=== PATIENT | female | born 1975 | race Hispanic/Latino ===

== ENCOUNTER 2019-10-31 17:27 | Emergency (ER) | payer SELFPAY ==
[~2019-10-31] VITALS: Ht 162.6 cm; Wt 79.4 kg
[2019-10-31] MEDS ORDERED: DICLOFENAC SODI75 MG PO (20:21)
--- NOTE | 2019-11-01 19:59 | EKG ---
[facility] [address] [facility] [place] [address] Signed Normal sinus rhythm Normal ECG No previous ECGs available Confirmed by LEVI EDWARDS MD ([id number]) on 11/01/2019 7:59:28 PM Electronically Signed By: LEVI EDWARDS MD 11/01/191958 PATIENT NAME: DANK ROMERO Electrocardiogram DATE OF : 75 PHYSICIAN: LEVI EDWARDS MD REPORT #: [id number] REPORT IS CONFIDENTIAL AND NOT TO BE RELEASED WITHOUT AUTHORIZATION
== END 2019-10-31 20:40 | disposition home or self-care (01) ==
LOC: ED 17:27
DX: M25.512 Pain in left shoulder (principal)
CPT/HCPCS: 71045; 80053; 83735; 84484; 85025; 93005; 93010; 96374; 99285-25; J1885